=== PATIENT | male | born 1980 | race Caucasian/White ===

== ENCOUNTER → 2023-06-02 18:41 | Outpatient (REF) | payer OTHER, SELFPAY | LOC: PAVMRI 18:41 | PROVIDERS: ATTENDING PHYSICIAN Physical Medicine & Rehabilitation; FAMILY PHYSICIAN Physician Assistant Medical | DX: M54.12 Radiculopathy, cervical region (principal) | CPT/HCPCS: 72141 ==

== ENCOUNTER → 2024-08-01 14:41 | Outpatient (REF) | payer OTHER, SELFPAY | LOC: HWRAD 14:41 | PROVIDERS: ATTENDING PHYSICIAN Internal Medicine; FAMILY PHYSICIAN Physician Assistant Medical | DX: R06.09 Other forms of dyspnea (principal); J98.4 Other disorders of lung | CPT/HCPCS: 71250 ==

== ENCOUNTER → 2024-11-26 18:56 | Outpatient (REF) | payer OTHER, SELFPAY | LOC: RAD 18:56 | PROVIDERS: ATTENDING PHYSICIAN Physician Assistant Medical | DX: M25.552 Pain in left hip (principal) | CPT/HCPCS: 73502 ==